=== PATIENT | male | born 1965 | race Caucasian/White ===

== ENCOUNTER → 2020-04-04 | Outpatient (CLI) | payer BC, OTHER ==
[~2020-04-04] MED LIST: LIQUID POLIBAR PLUS 105% w/v 1900ML BTL As Ordered ONE
--- NOTE | 2020-04-04 19:39 | REP ---
Examination Requested: Single contrast barium enema Reason For Exam: Questioned fistula The procedure was performed by JALEESA Frazier, under the direct supervision of Dr. Xiao. The images were reviewed with Dr. Xiao. The auxiliary equipment tender film shows no organomegaly, or pathological masses. The intestinal gas pattern is unremarkable. Liquid barium was instilled into the colon and retrograde flow of the barium air mixture. The colon is normal in position and contour. There is free flow of contrast to the cecum. There is reflux into the terminal ileum. The appendix is visualized. There is a significant amount of reflux into the small bowel. There is mild mucosal irregularity of the sigmoid colon. Directly adjacent to this mild thickening are surgical clips from previous inguinal hernia surgery. No fistulas were visualized. There is no annular constricting lesion identified. There are no polypoid masses identified. Impression: 1. Significant amount of reflux into the small intestine. 2. Mild mucosal irregularity of the sigmoid colon, adjacent to this irregularity are some surgical clips from previous inguinal hernia surgery. 0.3 minutes of fluoroscopy time was utilized for this procedure. Some fluoroscopic images are performed with last image hold technology. These images require no additional radiation. Reviewed by JALEESA Brewer 04/04/2020 04:58 P Electronically Signed by Pb Xiao MD 04/04/2020 07:30 P
== END ==
LOC: M RAD 09:28
PROVIDERS: ATTEND Internal Medicine Gastroenterology
DX: K63.2 Fistula of intestine (principal)

== ENCOUNTER → 2025-06-16 | Outpatient (CLI) | payer BC ==
[~2025-06-16] MED LIST changes: +ISOVUE-370 76% 100 ML VIAL As Ordered ONE; -LIQUID POLIBAR PLUS 105% w/v 1900ML BTL As Ordered ONE
== END ==
LOC: M RAD 10:38
PROVIDERS: ATTEND Nurse Practitioner Family
DX: D49.0 Neoplasm of unspecified behavior of digestive system (principal)